=== PATIENT | male | born 1985 | race African-American/Black ===

== ENCOUNTER 2022-04-06 11:27 | Day surgery (SDC) | payer OTHER ==
[~2022-04-06] VITALS: Ht 170.2 cm; Wt 87.0 kg
[2022-04-06] VITALS (10 sets, daily range): BP systolic 110–132; BP diastolic 68–92; PULSE 49–68
[2022-04-06] MEDS ORDERED: ASPIRIN 81M81 MG/TA2 PO (12:52)
[2022-04-06] MEDS ORDERED: THERA-D 40004000 IU PO (12:52)
[2022-04-06] MEDS ORDERED: FLONASEALLERGY NS (12:52)
[2022-04-06 12:53] LABS: HEMATOCRIT 49.3 % (42.0-52.0); HEMOGLOBIN 17.5 g/dl (13.5-18.0); MEAN CELL VOLUME 85 fl (80.0-100.0); MEAN CORPUSCULAR HEMOGLOBIN 30 pg (27-31); MEAN CORPUSCULAR HGB CONC 36 g/dl (33.0-37.0); MEAN PLATELET VOLUME 9.7 fl (7.4-10.4); PLATELET COUNT 252 K/mm3 (130-400); REDCELL DISTRIBUTION WIDTH-CV 12.2 % (11.5-14.5)
[2022-04-06] MEDS ORDERED: ATROVENT NASAL15 ML NS (12:53)
[2022-04-06] MEDS ORDERED: PROBIOTIC ACID1 EAC3 PO (12:53)
[2022-04-06] MEDS ORDERED: ROBAXIN 75750 MG/TAB PO (12:54)
[2022-04-06] MEDS ORDERED: LOPRESSOR 550 MG/TAB PO (12:55)
[2022-04-06] MEDS ORDERED: OXTELLAR PO (12:55)
[2022-04-06] MEDS ORDERED: PROTONIX 40MG T40 MG PO (12:56)
[2022-04-06] MEDS ORDERED: IMITREX100 MG PO (12:57)
[2022-04-06] MEDS ORDERED: TOPAMAX200 MG PO (12:58)
[2022-04-06 12:59] LABS: INR 1.2 (0.8-3.0); PROTHROMBIN TIME 13.4 SECONDS (9.7-12.8)
[2022-04-06 13:02] LABS: PARTIAL THROMBOPLASTIN TIME 36.1 SECONDS (26.0-37.0)
[2022-04-06 13:11] LABS: CALCIUM 9.3 mg/dL (8.4-10.2); CREATININE, serum 0.81 mg/dL (0.72-1.25); POTASSIUM 4.2 mmol/L (3.5-4.5)
--- NOTE | 2022-04-06 16:16 | NUR ---
See merge for all medication, assessment, intervention, and vital sign times.
--- NOTE | 2022-04-06 16:55 | NUR ---
Pt is back from cardiac cath tech, resting comfortably on stretcher. sinus prieto on monitor with occasional PVC. TR band in place, cms intact distal. pt updated on poc. call light in reach. lunch ordered.
--- NOTE | 2022-04-06 19:45 | NUR ---
Pt did well during his recovery. TR band has been deflated with no problem. site dressed with bandaid, folded 2x2 and coban, cms remains intact distal. I have revewed dc/fu and medication instructions with pt who verbalized understanding. iv dc/ cath intact, dressing applied. Pt escorted to exit.
== END 2022-04-06 20:40 | disposition home or self-care (01) ==
LOC: COL.CAR 11:27
PROVIDERS: Internal Medicine Cardiovascular Disease
DX: R07.89 Other chest pain (principal); R94.39 Abnormal result of other cardiovascular function study
CPT/HCPCS: C1769; J1644; J2250; J3010; Q9967